=== PATIENT | male | born 1985 | race Caucasian/White ===

== ENCOUNTER 2017-09-24 22:38 | Emergency (ER) | payer SELFPAY ==
[2017-09-25 00:31] LABS: Bilirubin,Urine NEG (Negative); Blood,Urine NEG (Negative); Color,Urine Yellow (Yellow); Mucus,Urine 1+ /HPF; Nitrite,Urine NEG (Negative); Protein,Urine <15 mg/dL mg/dL (Negative); Sperm,Urine FEW /HPF (NP)
--- NOTE | 2017-09-25 02:22 | Emergency Department Report ---
ED Male HPI - General Chief complaint: Urogenital-Male Stated complaint: PAIN IN GROIN Time Seen by Provider: 09/25/17 01:40 Source: patient Mode of arrival: Ambulatory Limitations: No Limitations - History of Present Illness Initial comments: 31-year-old male in no prescription and past medical history presents to the hospital complains of penile swelling and bruising since taking a Rhino 7 sex pill (intended to make sex last longer) and having sex on the fourth. Patient had sex twice that night. Afterwards he noticed a lot of swelling to the right lateral portion of his proximal penis that extended to the whole base of the penis by the next day. States that it was purplish in color. It was painless. Patient denies hematuria, difficulty urinating, or dysuria. Patient has had several erections over the last several days without pain. - Related Data Allergies Allergy/AdvReac Type Severity Reaction Status Date / Time No Known Allergies Allergy Unverified 09/24/17 22:53 ED Review of Systems ROS: Stated complaint: PAIN IN GROIN Other details as noted in HPI Comment: All other systems reviewed and negative Other: Constitutional: No fevers chills Eyes: No eye pain visual changes ENT: No ear pain or throat pain Neck: Denies pain Respiratory: Denies cough wheezing shortness of breath Cardiovascular: Denies chest pain, palpitations, syncope GI: Denies abdominal pain, nausea, vomiting, diarrhea : Denies dysuria Musculoskeletal: Denies back pain Skin: Denies rash, lesions, erythema Neurologic: Denies headache, numbness, weakness Psychiatric: Denies suicidal ideation, hallucinations ED Past Medical Hx - Past Medical History Previous Medical History?: No - Surgical History Past Surgical History?: No - Social History Smoking Status: Current Every Day Smoker Substance Use Type: None ED Physical Exam - General Limitations: No Limitations - Other Other exam information: General: No limitations, patient is alert in no acute distress Head exam: Atraumatic, normocephalic Eyes exam: Normal appearance ENT: Moist mucous membrane, normal oropharynx Neck exam: Normal inspection Respiratory exam: Clear to auscultation bilateral, no wheezes, rales, crackles Cardiovascular: Normal rate and rhythm, normal heart sounds Abdomen: Soft, nondistended, and nontender, with normal bowel sounds, no rebound, or guarding : no ecchymosis or deformity. Uncircumcised. Mild area of firmness to the right lateral penis without tenderness. No testicular or scrotal tenderness Extremity: Full range of motion normal inspection no deformity Back: Normal Inspection, full range of motion, no tenderness Neurologic: Alert, oriented x3, cranial nerves intact, no motor or sensory deficit Psychiatric: normal affect, normal mood Skin: Warm, dry, intact ED Course Vital Signs 09/24/17 09/25/17 22:48 00:49 Temperature 98.3 F Pulse Rate 84 56 L Respiratory 16 Rate Blood Pressure 119/84 Blood Pressure 134/83 [Left] O2 Sat by Pulse 98 Oximetry - Consultations Consultation #1: 09/25/17 02:22 Attempted to receive consult from Dr. Rangel boat person urologist, he states he is not there to evaluate pt but an MRI diagnosis a fractured penis and didn't offer any further advice. was not clear on how acutely this should be done given several days of symptoms ED Medical Decision Making - Lab Data Lab Results 09/24/17 Range/Units 23:08 Urine Color Yellow (Yellow) Urine Turbidity Clear (Clear) Urine pH 5.0 (5.0-7.0) Ur Specific [place] 1.020 (1.003-1.030) Urine Protein <15 mg/dl (Negative) mg/dL Urine Glucose (UA) Neg (Negative) mg/dL Urine Ketones Neg (Negative) mg/dL Urine Blood Neg (Negative) Urine Nitrite Neg (Negative) Urine Bilirubin Neg (Negative) Urine Urobilinogen 2.0 (<2.0) mg/dL Ur Leukocyte Esterase Neg (Negative) Urine WBC (Auto) 1.0 (0.0-6.0) /HPF Urine RBC (Auto) 2.0 (0.0-6.0) /HPF Urine Mucus 1+ /HPF Urine Sperm Few (YACHT MASTER) /HPF - Medical Decision Making Patient has a unilateral penile fracture given his symptoms although symptoms are painless. It is improving compared to symptom onset. Swelling is decreasing. Patient is not having any difficulty urinating, hematuria, or problems getting an erection. Patient advised to discontinue the Rhino7 pill. I Do not believe emergent MRI of his penis is indicated tonight given improving sx and lack of pain. Outpt urology follow up will be encouraged. - Differential Diagnosis penile fracture, medication reaction, STD, UTI Critical Care Time: No Critical care attestation.: If time is entered above; I have spent that time in minutes in the direct care of this critically ill patient, excluding procedure time. ED Disposition Clinical Impression: Penis injury Disposition: DC- TO HOME OR SELFCARE Is pt being admited?: No Does the pt Need Aspirin: No Condition: Stable Additional Instructions: It is very important that you follow with the urologist for further evaluation of your penis. Please return if he had worsening pain, bloody urine, or unable to get an erection. Referrals: ZACHERY KLINE MD [Staff Physician] - [facility] Time of Disposition: 02:34
[2017-09-25 02:44] VITALS: BP 112/74
== END 2017-09-25 02:43 | disposition home or self-care (01) ==
LOC: ED 22:38
DX: S39.94XA Unspecified injury of external genitals, initial encounter (principal); F17.200 Nicotine dependence, unspecified, uncomplicated; X58.XXXA Exposure to other specified factors, initial encounter; Y93.89 Activity, other specified; Y92.89 Other specified places as the place of occurrence of the external cause; Y99.8 Other external cause status
CPT/HCPCS: 81001